=== PATIENT | female | born 1945 | race Caucasian/White ===

== ENCOUNTER → 2017-05-27 | Outpatient (CLI) | payer MEDICARE ==
--- NOTE | 2017-05-27 21:57 | RADIOLOGY REPORT PS360 ---
PROCEDURE: 2-D M-mode and color Doppler study INDICATIONS FOR THE TEST: Chest pain COPD Heart Murmur Tobacco Smoking Palpitations Fatigue Syncope Edema HypertensionXDiabetes MellitusX Rheumatic Fever SOB DOEXObesity Hyperlipidemia Family History HDX Additional History PATIENT INFORMATION HEIGHT: 63 WEIGHT:180 GENDER: Female B/P:139/60 2-D/M-MODE INTERPRETATION: 2-D MEASUREMENTS OBSERVED VALUES IN CMS Right Ventricular Dimension (RVDd) 2.7 Interventricular Septum (Thickness)(IVsd) 1.2 Left Ventricular Internal Dimensions(LVIDd) 4.9 Left Ventricular Posterior Wall (Thickness)(LVPWd) 1.1 Aortic Root 2.7 Aortic Cusp Separation 2.1 Left Atrial Dimensions (LAD) 4.9 2D 1. Left atrium is mildly enlarged, left ventricle is normal size, there is mild concentric left ventricular hypertrophy, visually estimated ejection fraction of 55% with no obvious regional wall motion abnormality. 2. The right atrium and right ventricle are relatively normal size and function. 3. The aortic valve is minimally thickened and calcified. 4. The mitral and tricuspid valves are grossly normal. 5. The pulmonic valve is poorly visualized. 6. No significant pericardial effusion noted. DOPPLER INTERROGATION: Doppler interrogation of the aortic, mitral and tricuspid valvular presence of mild mitral and tricuspid regurgitation, tricuspid and jet velocity insufficient for calculation of the right ventricular systolic pressure, grade 1 diastolic dysfunction seen with tissue Doppler evidence of raised left atrial pressure. Agitated saline contrast study fails to identify right to left shunt. CONCLUSION: 1. Mildly enlarged left atrium, normal left ventricular size, mild concentric left ventricular hypertrophy, visually estimated ejection fraction 55% with no obvious regional wall motion abnormality, grade 1 diastolic dysfunction seen with tissue Doppler evidence of raised left atrial pressure. 2. Mild mitral and tricuspid regurgitation. 3. Agitated saline contrast study fails to identify right to left shunt. 4. No significant pericardial effusion noted.
--- NOTE | 2017-05-28 14:47 | RADIOLOGY REPORT PS360 ---
CARDIOLITE SPECT MYOCARDIAL PERFUSION SCAN, REST AND STRESS: EXERCISE STRESS [facility] REVIEW QGS EF AND WALL MOTION EVALUATION: QPS - PERFUSION EVALUATION HISTORY: CAD, HTN, DM, HX of old [place] DOSE: 10.63 mCi technetium 99m mibi intravenously at rest followed by 32.1 mCi technetium 99m mibi following the intravenous ministration of 0.4 mg of Lexiscan. Resting blood pressure is 138/69. Stress blood pressure 125/55. FINDINGS: Ejection fraction is calculated to be 59%. Stress images reveal mildly decreased activity in the inferior wall with severely decreased activity in a portion of the septum. Rest images reveal persistent decrease in the septum and worsening activity in the inferior wall. 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 This is a high risk abnormal stress test.
--- NOTE | 2017-05-28 14:47 | RADIOLOGY REPORT PS360 ---
CARDIOLITE SPECT MYOCARDIAL PERFUSION SCAN, REST AND STRESS: EXERCISE STRESS [facility] REVIEW QGS EF AND WALL MOTION EVALUATION: QPS - PERFUSION EVALUATION HISTORY: CAD, HTN, DM, HX of old [place] DOSE: 10.63 mCi technetium 99m mibi intravenously at rest followed by 32.1 mCi technetium 99m mibi following the intravenous ministration of 0.4 mg of Lexiscan. Resting blood pressure is 138/69. Stress blood pressure 125/55. FINDINGS: Ejection fraction is calculated to be 59%. Stress images reveal mildly decreased activity in the inferior wall with severely decreased activity in a portion of the septum. Rest images reveal persistent decrease in the septum and worsening activity in the inferior wall. 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 This is a high risk abnormal stress test.
== END ==
LOC: RAD 06:11
DX: I25.2 Old myocardial infarction (principal); I25.10 Atherosclerotic heart disease of native coronary artery without angina pectoris; I11.9 Hypertensive heart disease without heart failure; E78.5 Hyperlipidemia, unspecified; E11.9 Type 2 diabetes mellitus without complications; I20.9 Angina pectoris, unspecified

== ENCOUNTER → 2017-06-04 | Day surgery (SDC) | payer MEDICARE ==
[2017-06-04 08:40] LABS: LYMPH # 0.9 K/mm3 (0.7-4.5); LYMPH % 27.2 % (10-50.0)
[2017-06-04 08:42] LABS: HEMOGLOBIN 7.9 g/dL (12.2-16.2)
[2017-06-04 08:45] LABS: BUN 29 mg/dL (7-18)
[2017-06-04 08:46] LABS: GFR (ESTIMATED) 61 ML/MIN (59-)
[2017-06-04 10:54] LABS: ABO BLOOD TYPE O; RH BLOOD TYPE POSITIVE
[2017-06-04 21:46] LABS: ANTIHUMAN GLOB CROSSMATCH COMPAT
[2017-06-04 22:25] VITALS: BP 150/73
[2017-06-04 22:30] VITALS: BP 133/60
[2017-06-04 22:35] VITALS: BP 132/60
[2017-06-04 22:40] VITALS: BP 151/64
[2017-06-04 22:55] VITALS: BP 151/66
[2017-06-04 23:05] VITALS: BP 151/66; BP 154/68
[2017-06-05] VITALS (10 sets, daily range): BP systolic 142–160; BP diastolic 62–72
== END ==
LOC: CATHLAB 07:40
PROVIDERS: Internal Medicine
DX: I25.119 Atherosclerotic heart disease of native coronary artery with unspecified angina pectoris (principal); D64.9 Anemia, unspecified; I11.9 Hypertensive heart disease without heart failure; E11.9 Type 2 diabetes mellitus without complications; I50.30 Unspecified diastolic (congestive) heart failure
CPT/HCPCS: G0463; P9016

== ENCOUNTER 2017-07-05 07:23 | Day surgery (SDC) | payer MEDICARE ==
[2017-07-05 08:05] LABS: HEMOGLOBIN 9.7 g/dL (12.2-16.2); LYMPH # 0.7 K/mm3 (0.7-4.5); LYMPH % 23.2 % (10-50.0)
[2017-07-05 08:06] LABS: BUN 16 mg/dL (7-18)
[2017-07-05 08:08] LABS: GFR (ESTIMATED) 70 ML/MIN (59-)
[2017-07-05 08:23] LABS: NEUTROPHILS 74 % (42-76)
--- NOTE | 2017-07-05 09:58 | RADIOLOGY REPORT PS360 ---
CARDIAC CATHETERIZATION DATE OF CATHETERIZATION:07/05/2017 8:32 AM PROCEDURES: 1. Left heart catheterization 2. Left ventriculogram 3. Selective coronary angiogram INDICATION FOR TEST: 1. Abnormal Myoview 2. Risk factors for coronary artery disease 3. Angina pectoris Informed consent was obtained prior to the procedure. COMPLICATIONS: None ESTIMATED BLOOD LOSS: Less than 10 ml. TECHNIQUE: One percent lidocaine used to anesthetize the right anterior aspect of the wrist. The right radial artery was accessed via the Seldinger technique. A 6 [place] sheath was placed in the right radial artery. 2.5 mg of verapamil, 800 mcg of nitroglycerin and 5000 U Heparin were given through the arterial sheath. The trap catheter was also used to perform left heart catheterization and left ventriculography. At the end of the procedure the patient was transferred to the post-op holding area in stable condition for arterial sheath removal. ANGIOGRAPHIC RESULTS: 1. The left main artery normal 2. The left anterior descending artery normal 3. The circumflex artery normal 4. The right coronary artery dominant normal 5. The GONZALEZ ventriculogram reveals 65% 6. The left ventricular end-diastolic pressure normal 10 mmHg IMPRESSION: 1. Normal coronary arteries. 2. Normal ejection fraction 3. Normal left ventricular end-diastolic pressure PLAN: 1. Workup for anemia 2. Risk factor modification 3. Treatment of noncardiac symptomatology
[2017-07-05 13:27] VITALS: BP 163/70
== END 2017-07-05 13:40 | disposition home or self-care (01) ==
LOC: CATHLAB 07:23
PROVIDERS: Internal Medicine
PROC: B2111ZZ Fluoroscopy of Multiple Coronary Arteries using Low Osmolar Contrast (ICD-10-PCS; 2017-07-05)
PROC: B2151ZZ Fluoroscopy of Left Heart using Low Osmolar Contrast (ICD-10-PCS; 2017-07-05)
PROC: 4A023N7 Measurement of Cardiac Sampling and Pressure, Left Heart, Percutaneous Approach (ICD-10-PCS; principal; 2017-07-05 08:30)
DX: I11.0 Hypertensive heart disease with heart failure (principal); R07.9 Chest pain, unspecified; R94.39 Abnormal result of other cardiovascular function study; I50.30 Unspecified diastolic (congestive) heart failure; I25.2 Old myocardial infarction; I25.10 Atherosclerotic heart disease of native coronary artery without angina pectoris; E11.9 Type 2 diabetes mellitus without complications
CPT/HCPCS: C1769; J1644; Q9967